=== PATIENT | female | born 1940 | race Caucasian/White ===

== ENCOUNTER 2020-05-27 18:39 | Inpatient (IN) | payer MEDICARE, OTHER ==
[~2020-05-27] VITALS: Ht 172.7 cm; Wt 71.1 kg
--- NOTE | ~2020-05-27 | EMS ---
[place] [address] EMS Patient Care Report Name: ISABEL GARCIA Room: [place] [address] ADM IN [facility]#: [id number] Admission: 05/27/20 Attend Phys: Rikki Pedroza MD Discharge: Date of : 42 Report #: [id number] THIS REPORT FOR: //name// Report Transmitted: 05/27/2020 20:11 EMS Care Summary [facility] Incident [id number] @ 05/27/2020 17:33 Incident Location [address] [place] [address] Patient ISABEL GARCIA Female, 79 Years 1940 Patient Address [address] [place] [address] Patient History Breast Cancer,Type 2 Diabetes, Patient Allergies No known allergies, Patient Medications Prednisone, Protonix, Insulin, Chief Complaint Hypoglycemia Disposition Transported Lights/Streeter Dispatch Reason Altered Mental Status Transported To [facility] Narrative Dispatch: [facility] was dispatched for a female patient experiencing hypoglycemia. Med 1 copied tones and went en route emergent. Chief Complaint: Med 1 arrived on scene to find the [place] [address] EMS Patient Care Report Name: ISABEL GARCIA Room: [facility] IN [facility]#: [id number] Admission: 05/27/20 Attend Phys: Rikki Pedroza MD Discharge: Date of : 42 Report #: [id number] her chair. Patient was experiencing slurred speech, and altered mental status. The patient's grandson stated her sugar level decreased and she is now altered. Patient's initial BG for EMS is 68. The patient's grandson was concerned about her mental status and stated she is "talking funny." History of present illness/KANE: Patient is a type 2 diabetic. Patient has an insulin pump that is actively working. Patient has an unknown last known well. Patient called 911 due to feeling "like her pump was not working." Patient's grandson states he saw her at 8 a.m. and she was "normal." Patient is normally A&OX4, GCS 15. Assessment: Airway: Clear, patent, and self maintained. Breathing: Clear and equal bilaterally. Non labored. Circulation: Skin is pink, warm, and dry. Strong radial pulses. Disability: A&OX2, patient is normally A&OX4. Exposures: No life threats were found. See "assessments" tab for further. Reason for ambulance: Patient is experiencing an altered mental status and is requesting EMS treatment and transport. Treatments: ALS assessment. 20G IV right AC. ETCO2 via nasal cannula at 2 liters showing non obstructed waveforms. Vitals monitored. See "flowchart" for further. Summary: After EMS arrival, the patient was given oral glucose to help raise her blood sugar. The patient also drank a glass of orange juice. The blood sugar began to increase, but the patient is still experiencing altered mental status, slurred speech, and left sided deficits. With EMS assistance the patient was able to be seated on the cot, secured in place, and placed into the ambulance for treatment and transport. Med 1 went en route emergent to [place]. A 12 lead EKG was performed showing sinus tachycardia, along with an IV placed in the right AC. The patient has a positive [place] and MEND exam with left sided deficits. Radio report was given with stroke activation and no further questions or orders were received. The patient's overall condition remained the same throughout transport. Med 1 arrived at destination and the patient was taken to CT. Report was given and signatures and paperwork were received. Med 1 returned back in service. Initial Vitals @17:57Glucose: 78, @18:36Glucose: 180, @18:10P: 111,BP: 145/79,SpO2: 94,PA Suspected: false @18:35P: 111,R: 17,BP: 137/88,EtCO2: 35,SpO2: 99,PA Suspected: false @18:40BP: 135/88,EtCO2: 32, [place] [address] EMS Patient Care Report Name: ISABEL GARCIA Room: [place] [address] ADM IN .#: [id number] Admission: 05/27/20 Attend Phys: Rikki Pedroza MD Discharge: Date of : 42 Report #: [id number] @18:20P: 110,Glucose: 121,EtCO2: 32,SpO2: 97,PA Suspected: false @17:50P: 92,R: 18,BP: 106/50,GCS: 13,Glucose: 68,SpO2: 98,Revised Trauma: 12, @18:14P: 115,PA Suspected: false @18:40P: 111,R: 18,GCS: 13,Glucose: 252,EtCO2: 32,SpO2: 97,PA Suspected: false @18:25P: 110,R: 20,BP: 145/78,EtCO2: 31,SpO2: 98,PA Suspected: false @18:30P: 111,R: 20,BP: 137/96,EtCO2: 35,SpO2: 99, Assessments @17:42MENTAL:Confused,Person Oriented,Place Oriented,SKIN:HEENT:Head/Face: Facial Droop,LUNG SOUNDS:ABDOMEN:PELVIS//GI:EXTREMITIES:Left Arm: Weakness,Left Leg: Weakness,Capillary Refill: Right Upper: < 2 Sec,PULSE:Radial: 2+ Normal,NEURO:Weakness Left-Sided,Slurred Speech,Facial Droop,@18:14MENTAL:Confused,Person Oriented,Place Oriented,SKIN:HEENT:Head/Face: Facial Droop,LUNG SOUNDS:ABDOMEN:PELVIS//GI:EXTREMITIES:Left Arm: Weakness,Left Leg: Weakness,Capillary Refill: Right Upper: < 2 Sec,PULSE:Radial: 2+ Normal,NEURO:Slurred Speech,Weakness Left-Sided,Facial Droop, Impression Diabetic Hypoglycemia Procedures @18:1412-Lead ECGResponse: UnchangedSucceeded@18:4012-Lead ECGResponse: UnchangedSucceeded@17:42ALS AssessmentResponse: UnchangedSucceeded@18:14Saline Lock 0cc (20 ga) Site: Hand-LeftResponse: UnchangedFailed@18:13Oxygen FlowRate: 2 Device: CO2 Nasal Cannula Response: UnchangedSucceeded@18:15Saline Lock 0cc (20 ga) Site: Antecubital-RightResponse: UnchangedSucceeded@17:44Oral Glucose - 37 Grams (gms) - OralResponse: Improved Timeline 17:33,Call Received 17:33,Dispatched 17:35,En Route 17:40,On Scene 17:41,At Patient 17:42,ALS Assessment,Response: UnchangedSucceeded, 17:44,Oral Glucose - 37 Grams (gms) - Oral,Response: Improved 17:50,BP: 106/50 M,PULSE: 92,RR: 18 R,SPO2: 98 Ox,ETCO2: ,B,PAIN: ,GCS: 13, 17:57,BP: / M,PULSE: ,RR: R,SPO2: Ox,ETCO2: ,B,PAIN: ,GCS: , 18:10,BP: 145/79 M,PULSE: 111,RR: R,SPO2: 94 Ox,ETCO2: ,BG: ,PAIN: ,GCS: , 18:13,Oxygen FlowRate: 2 Device: CO2 Nasal Cannula Response: UnchangedSucceeded, 18:14,Saline Lock 0cc 20 ga Site: Hand-Left,Response: UnchangedFailed, 18:14,12-Lead ECG,Response: UnchangedSucceeded, 18:14,BP: / M,PULSE: 115,RR: R,SPO2: Ox,ETCO2: ,BG: ,PAIN: ,GCS: , 18:14,[place] [address] EMS Patient Care Report Name: ISABEL GARCIA Room: [place] [address] ADM IN .R.#: [id number] Admission: 05/27/20 Attend Phys: Rikki Pedroza MD Discharge: Date of : 42 Report #: [id number] 18:15,Saline Lock 0cc 20 ga Site: Antecubital-Right,Response: UnchangedSucceeded, 18:20,BP: / M,PULSE: 110,RR: R,SPO2: 97 Ox,ETCO2: 32 ,B,PAIN: ,GCS: , 18:25,BP: 145/78 M,PULSE: 110,RR: 20 R,SPO2: 98 Ox,ETCO2: 31 ,BG: ,PAIN: ,GCS: , 18:30,BP: 137/96 M,PULSE: 111,RR: 20 R,SPO2: 99 Ox,ETCO2: 35 ,BG: ,PAIN: ,GCS: , 18:35,BP: 137/88 M,PULSE: 111,RR: 17 R,SPO2: 99 Ox,ETCO2: 35 ,BG: ,PAIN: ,GCS: , 18:36,BP: / M,PULSE: ,RR: R,SPO2: Ox,ETCO2: ,B,PAIN: ,GCS: , 18:40,BP: 135/88 M,PULSE: ,RR: R,SPO2: Ox,ETCO2: 32 ,BG: ,PAIN: ,GCS: , 18:40,12-Lead ECG,Response: UnchangedSucceeded, 18:40,BP: / M,PULSE: 111,RR: 18 R,SPO2: 97 Ox,ETCO2: 32 ,B,PAIN: ,GCS: 13, 18:46,At Destination 19:03,Call Closed Disclaimer v1.1 Copyright 2020 [employer] This EMS Care Summary contains data elements from the applicable legal record (which may be displayed differently). It is designed to provide pertinent information for the following purposes: continuity of care, clinical quality, and state data reporting. The complete legal record is available to ED staff and administrators of the receiving hospital in [employer]'s Patient Tracker. All data is provided "as is."
[2020-05-27 19:23] LABS: ABSOLUTE LYMPHOCYTES 0.6 thou/uL (0.8-5.3); ABSOLUTE MONOCYTES 0.3 thou/uL (0.0-1.2); ABSOLUTE NEUTROPHILS 2.6 thou/uL (1.6-8.1); BASOPHILS 0.1 %; HEMATOCRIT 33.7 % (37.0-47.0); HEMOGLOBIN 11.5 gm/dL (12.0-15.0); LYMPHOCYTES 17.2 %; MCHC 34.3 g/dL (28.0-37.0); MCV 93.3 fL (80.0-100.0); MONOCYTES 7.4 %; MPV 7.9 fl. (7.2-11.1); NUCLEATED RBCS 0 /100WBC; PLATELET COUNT* 142 thou/uL (150-400); POLYS 75.3 %; RBC 3.61 mil/uL (4.20-5.00); RDW-CV 14.6 % (10.5-14.5); WBC 3.5 thou/uL (4.0-11.0)
[2020-05-27 19:32] VITALS: BP 130/69
[2020-05-27 19:38] LABS: APTT 24.3 Seconds (25.0-31.3); PROTIME 10.3 Seconds (9.20-11.50)
[2020-05-27 19:44] LABS: CREATININE 1.3 mg/dL (0.6-1.3); POTASSIUM 4.5 mmol/L (3.5-5.1)
[2020-05-27 19:45] LABS: ALBUMIN 3.1 g/dL (3.4-5.0); TOTAL BILIRUBIN 0.4 mg/dL (<0.1-1.0)
[2020-05-27] MEDS ORDERED: [UNRECOGNIZED DRUG - OTHER] PO (20:47)
[2020-05-27] MEDS ORDERED: CHILDREN'S ASPI81 M1 PO (20:48)
[2020-05-27] MEDS ORDERED: MICARDIS40 MG PO (20:48)
[2020-05-27] MEDS ORDERED: PROTONIX40 M2 PO (20:48)
[2020-05-27] MEDS ORDERED: ATIVAN1 M1 PO (20:50)
[2020-05-27] MEDS ORDERED: NOVALOG (20:52)
[2020-05-27] MEDS ORDERED: DESYREL150 MG PO (20:53)
[2020-05-27 21:40] VITALS: BP 117/63
[2020-05-28 00:24] VITALS: BP 104/52
[2020-05-28 03:58] LABS: URINE BILIRUBIN NEGATIVE (Negative); URINE BLOOD TRACE (Negative); URINE CLARITY CLEAR; URINE COLOR YELLOW; URINE GLUCOSE-RANDOM NEGATIVE (Negative); URINE KETONES NEGATIVE (Negative); URINE LEUKOCYTES TRACE (Negative); URINE NITRITE POSITIVE (Negative); URINE PROTEIN TRACE (Negative); URINE UROBILINOGEN 0.2 E.U./dl (0.2-1.0)
[2020-05-28 05:10] LABS: CASTS None Seen /LPF (None Seen); SQUAMOUS 4-10 Moderate /LPF (0-3)
[2020-05-28 05:11] LABS: BACTERIA >30 Many /HPF (None Seen); CRYSTALS None Seen /LPF (None Seen); URINE RBC 0-2 Rare /HPF (0-2); URINE WBC 6-15 Few /HPF (0-5)
[2020-05-28 05:28] VITALS: BP 96/44
[2020-05-28 09:00] LABS: CREATININE 1.2 mg/dL (0.6-1.3); POTASSIUM 4.2 mmol/L (3.5-5.1)
[2020-05-28 09:04] LABS: MAGNESIUM 2.3 mg/dL (1.8-2.4); PHOSPHORUS* 2.6 mg/dL (2.5-4.9)
[2020-05-28 12:06] VITALS: BP 105/57
--- NOTE | 2020-05-28 12:34 | 2DMMODE ---
[place] [address] 2 D/M-MODE ECHOCARDIOGRAM Name: ISABEL GARCIA Room: [address] IN .R#: [id number] Admission: 05/27/20 Attend Phys: Rikki Pedroza, Discharge: Date of : 42 Date of Service: 05/28/20 1234 Report #: [id number] THIS REPORT FOR: cc: KATIE - Yolanda family physician/PCP KATIE - No family physician/PCP Benji Rizzo MD [facility] ~ APPROVED REPORT Study performed: 05/28/2020 10:00:56 EXAM: Comprehensive 2D, Doppler, and color-flow Echocardiogram Patient Location: In-Patient Room #: [facility] Status: routine BSA: 1.89 HR: 67 bpm BP: 96/44 mmHg Rhythm: NSR Other Information Study Quality: Good Indications CVA/TIA Echo Enhancing Agent Indication: Rule out Shunt Agent(s) / Amount(s) Used: Agitated Saline 10 cc 2D Dimensions IVSd: 11.06 (7-11mm) LVOT Diam: 20.45 (18-24mm) LVDd: 48.69 mm PWd: 12.83 (7-11mm) Ascending Ao: 32.88 (22-36mm) LVDs: 33.22 (25-40mm) Aortic Root: 32.44 mm Volumes Left Atrial Volume (Systole) LA ESV Index: 13.60 mL/m2 Aortic Valve AoV Peak Ceasar.: 1.26 m/s AO Peak Gr.: 6.34 mmHg LVOT Max P.22 mmHg AO Mean Gr.: 3.74 mmHg LVOT Mean P.02 [place] [address] 2 D/M-MODE ECHOCARDIOGRAM Name: ISABEL GARCIA Room: [address] IN .R.#: [id number] Admission: 05/27/20 Attend Phys: Rikki Pedroza, Discharge: Date of : 42 Date of Service: 05/28/20 1234 Report #: [id number] LVOT Max V: 1.03 m/s AO V2 VTI: 23.95 cm LVOT Mean V: 0.65 m/s SUMAYA (VTI): 3.06 cm2 LVOT V1 VTI: 22.32 cm Mitral Valve E/A Ratio: 0.90 MV Decel. Time: 250.70 ms MV E Max Ceasar.: 0.79 m/s MV PHT: 72.70 ms MVA (PHT): 3.03 cm2 TDI E/Lateral E': 7.90 E/Medial E': 11.29 Medial E' Caesar.: 0.07 m/s Lateral E' Ceasar.: 0.10 m/s Pulmonary Valve PV Peak Ceasar.: 0.93 m/s PV Peak Gr.: 3.43 mmHg Left Ventricle The left ventricle is normal size. There is normal LV segmental wall motion. There is normal left ventricular wall thickness. Left ventricular systolic function is normal. The left ventricular ejection fraction is within the normal range. LVEF is 55-60%. Grade I - abnormal relaxation pattern. Right Ventricle The right ventricle is normal size. The right ventricular systolic function is normal. Atria The left atrium size is normal. The interatrial septum is intact with no evidence for an atrial septal defect. The right atrium size is normal. Aortic Valve The aortic valve is normal in structure. No aortic regurgitation is present. There is no aortic valvular stenosis. Mitral Valve The mitral valve is normal in structure. There is no mitral valve regurgitation noted. No evidence of mitral valve stenosis. Tricuspid Valve The tricuspid valve is normal in structure. Trace tricuspid regurgitation. Unable [place] [address] 2 D/M-MODE ECHOCARDIOGRAM Name: ISABEL GARCIA Room: [address] IN ..#: [id number] Admission: 05/27/20 Attend Phys: Rikki Pedroza, Discharge: Date of : 42 Date of Service: 05/28/20 1234 Report #: [id number] Pulmonic Valve The pulmonary valve is normal in structure. There is no pulmonic valvular regurgitation. Great Vessels The aortic root is normal in size. IVC is normal in size and collapses >50% with inspiration. Pericardium There is no pericardial effusion. <Conclusion> The left ventricle is normal size. There is normal left ventricular wall thickness. Left ventricular systolic function is normal. The left ventricular ejection fraction is within the normal range. LVEF is 55-60%. The right ventricle is normal size. The left atrium size is normal. The aortic valve is normal in structure. The mitral valve is normal in structure. The tricuspid valve is normal in structure. IVC is normal in size and collapses >50% with inspiration. There is no pericardial effusion. There is normal LV segmental wall motion. The interatrial septum is intact with no evidence for an atrial septal defect. Grade I - abnormal relaxation pattern. <ELECTRONICALLY SIGNED> By: Benji Rizzo MD, FACC 05/28/20 1234 1234 1234 Benji Rizzo MD, FACC /INF
--- NOTE | 2020-05-28 13:15 | EKG ---
[place] [address] ELECTROCARDIOGRAM REPORT Name: ISABEL GARCIA Room: [address] ADM IN ..#: [id number] Admission: 05/27/20 Attend Phys: Rikki Pedroza, Discharge: Date of : 42 Date of Service: 05/27/201924 Report #: [id number] THIS REPORT FOR: //name// [facility] ED Test Date: 2020-05-27 Test Time: 19:25:32 Pat Name: ISABEL GARCIA Department: Room: [facility] Gender: F Jewelry Manager: MERE : 1940 Requested By: Bj Aguilera Order Number: [id number] MD: Benji Rizzo Measurements Intervals [place] Rate: 115 P: 43 [place]: 150 QRS: 52 QRSD: 112 T: 6 QT: 326 QTc: 451 Interpretive Statements Sinus tachycardia Low voltage, precordial leads Abnormal R-wave progression, early transition Baseline wander in lead(s) I,II,aVR,aVL,aVF,V1,V3,V4,V5 No previous ECG available for comparison Electronically Signed On 05-28-2020 13:14:55 HISTORICAL SOCIETY DIRECTOR by Benji Rizzo [email or web address] <ELECTRONICALLY SIGNED> By: Benji Rizzo MD, FACC 05/28/20 1314 24 24 Benji Rizzo MD, [facility] /EPI
[2020-05-28 16:39] VITALS: BP 113/58
[2020-05-28 20:30] VITALS: BP 108/59
[2020-05-29 00:30] VITALS: BP 85/49
[2020-05-29 02:06] LABS: GLYCOHEMOGLOBIN (HGB A1C) 8.1 % (4.8-5.6)
[2020-05-29 04:49] VITALS: BP 89/52
[2020-05-29 05:16] LABS: HEMATOCRIT 31.5 % (37.0-47.0); HEMOGLOBIN 10.7 gm/dL (12.0-15.0); MCH 31.4 pg (26.0-34.0); MCV 92.3 fL (80.0-100.0); MPV 7.6 fl. (7.2-11.1); RBC 3.41 mil/uL (4.20-5.00); RDW-CV 14.6 % (10.5-14.5); WBC 3.3 thou/uL (4.0-11.0)
[2020-05-29 05:25] LABS: CALCIUM 8.2 mg/dL (8.5-10.1); CREATININE 1.3 mg/dL (0.6-1.3); MAGNESIUM 2.3 mg/dL (1.8-2.4); POTASSIUM 4.1 mmol/L (3.5-5.1)
[2020-05-29 06:13] LABS: CHOLESTEROL 144 mg/dL (<200); HDL CHOLESTEROL 43 mg/dL (>40); LDL CHOLESTEROL 69 mg/dL (<100); SERUM ASSESSMENT Clear; TC:HDL 3.3 Ratio (Not establshd); TRIGLYCERIDE 161 mg/dL (<150); VLDL 32 mg/dL (<40)
[2020-05-29 08:00] VITALS: BP 105/54
[2020-05-29 12:00] VITALS: BP 82/41
[2020-05-29 15:55] VITALS: BP 116/53
[2020-05-29 20:00] VITALS: BP 109/57
[2020-05-30] VITALS: BP 108/48
[2020-05-30 03:58] VITALS: BP 139/58
[2020-05-30 04:44] LABS: HEMATOCRIT 31.5 % (37.0-47.0); HEMOGLOBIN 10.6 gm/dL (12.0-15.0); MCH 31.3 pg (26.0-34.0); MCHC 33.6 g/dL (28.0-37.0); MCV 93.1 fL (80.0-100.0); MPV 7.3 fl. (7.2-11.1); RBC 3.38 mil/uL (4.20-5.00); RDW-CV 14.4 % (10.5-14.5); WBC 2.8 thou/uL (4.0-11.0)
[2020-05-30 05:16] LABS: ALBUMIN 2.6 g/dL (3.4-5.0); CREATININE 1.2 mg/dL (0.6-1.3); MAGNESIUM 2.4 mg/dL (1.8-2.4); POTASSIUM 4.7 mmol/L (3.5-5.1); TOTAL BILIRUBIN 0.3 mg/dL (<0.1-1.0); TOTAL PROTEIN 6.7 g/dL (6.4-8.2)
[2020-05-30 07:55] VITALS: BP 133/72
[2020-05-30 21:53] VITALS: BP 133/57
[2020-05-30 23:46] VITALS: BP 117/51
[2020-05-31 04:00] VITALS: BP 132/52
[2020-05-31 08:25] VITALS: BP 96/47
[2020-05-31 11:45] VITALS: BP 117/59
[2020-05-31 12:16] VITALS: BP 96/43
[2020-05-31 16:27] VITALS: BP 112/56
[2020-05-31 20:00] VITALS: BP 106/48
[2020-06-01] VITALS: BP 111/47
[2020-06-01 04:38] VITALS: BP 91/39
[2020-06-01 06:13] LABS: HEMATOCRIT 28.7 % (37.0-47.0); HEMOGLOBIN 9.9 gm/dL (12.0-15.0); MCH 31.9 pg (26.0-34.0); MCHC 34.3 g/dL (28.0-37.0); MCV 93.1 fL (80.0-100.0); MPV 7.8 fl. (7.2-11.1); RBC 3.09 mil/uL (4.20-5.00); WBC 9.5 thou/uL (4.0-11.0)
[2020-06-01 06:34] LABS: ALBUMIN 2.3 g/dL (3.4-5.0); CALCIUM 8.3 mg/dL (8.5-10.1); MAGNESIUM 2.3 mg/dL (1.8-2.4); POTASSIUM 4.7 mmol/L (3.5-5.1); TOTAL BILIRUBIN 0.4 mg/dL (<0.1-1.0); TOTAL PROTEIN 6.1 g/dL (6.4-8.2)
[2020-06-01 09:55] VITALS: BP 103/50
--- NOTE | 2020-06-01 10:55 | CON ---
[address] [address] CONSULTATION Name: ISABEL GARCIA Room: [address] ADM IN M.R.#: [id number] Admission: 05/27/20 Attend Phys: Rikki Pedroza MD Discharge: Date of : 42 Report #: [id number] THIS REPORT FOR: //name// cc: KATIE - No family physician/PCP KATIE - No family physician/PCP ~ DATE OF SERVICE: 05/28/2020 HISTORY OF PRESENT ILLNESS: This is a 79-year-old female patient who was evaluated by me for an episode of expressive aphasia. History is somewhat confusing, but ER note indicates that the patient's blood sugar was low when it happened. She was given blood sugar and the symptoms resolved. 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 Her blood sugar goes up and down all the time, but she never had symptoms like this before. She does not know how low blood sugar was, but she is back to her baseline. She was found to be COVID positive during routine testing for the admission. REVIEW OF SYSTEMS: Positive for brittle diabetes. She says she has a monitor, will check her blood sugar very frequently and it does fluctuate. It does go quite low, but usually she does not get as much symptoms as she got but usually does get confused. She is COVID positive. Her renal function is borderline. Her GFR is only 40. It came up to 43. She is also having multiple other abnormality in the blood like white count is low. Her platelet count is low. She does not know how long these are going on and what her baseline is in that regard, but she says she feels back to her baseline. A 14-point review of system was carried out and it would appear that it is mostly noncontributory except as summarized above. PAST MEDICAL HISTORY: Negative for any stroke. FAMILY HISTORY: Negative for any early age stroke. SOCIAL HISTORY: She does not drink alcohol on a regular basis. PHYSICAL EXAMINATION: Indicate that she is alert. She is responsive to me. Her speech looks unremarkable. She is able to talk fairly well. She feels back to her baseline and we will try to reach the family to confirm that. Cranial nerve examination 2-12 looks unremarkable. Neuromuscular examination was symmetrical. There is no cerebellar sign. There is no meningeal sign. There is no carotid bruit in this patient. LABORATORY DATA: Indicate sodium of 135. She did have a CT scan on admission, which does not appear to [place] [address] CONSULTATION Name: ISABEL GARCIA Room: [address] IN [facility]#: [id number] Admission: 05/27/20 Attend Phys: Rikki Pedroza MD Discharge: Date of : 42 Report #: [id number] IMPRESSION: This patient appeared to have an episode of aphasia. Some of the records indicate the blood sugar was low, but I cannot confirm that. Moreover, the patient never had any symptoms like this before. It is desirable to look for transient ischemic attack in this patient. I went ahead and ordered a carotid Doppler in this patient. I was going to get a CT angiogram done, but I am somewhat concerned with her GFR. We will see if it comes up. She is COVID positive. I need to find out the protocol for MRI in this patient if it can be done. If workup is done and she returns supervisor to have a stroke, than the desirable thing is to do a combination of aspirin and Plavix, but her platelet count is low, that worries us somewhat, but it is not drastically low to prevent us from doing that if we can demonstrate the patient had a stroke by an MRI, but they have some protocol which they have to do on the COVID patient. I will also try to call the family and get all those things straightened up, but in the meantime, I think she needs a carotid Doppler. She needs an echocardiogram and she does need an MRI, but I do not know when it can be done because of her COVID status. Thank you very much for this referral. <ELECTRONICALLY SIGNED> By: Quincy Hernandez MD 06/01/20 1055 1408 1443Pross Hernandez MD /nt
[2020-06-01 11:29] VITALS: BP 105/56
[2020-06-01 17:48] VITALS: BP 108/61
[2020-06-01 20:00] VITALS: BP 134/63
[2020-06-02] VITALS (9 sets, daily range): BP systolic 96–148; BP diastolic 36–74
[2020-06-02 10:50] LABS: HEMATOCRIT 28.3 % (37.0-47.0); HEMOGLOBIN 9.7 gm/dL (12.0-15.0); MCH 31.9 pg (26.0-34.0); MCHC 34.2 g/dL (28.0-37.0); MCV 93.3 fL (80.0-100.0); MPV 7.7 fl. (7.2-11.1); NUCLEATED RBCS 0 /100WBC; PLATELET COUNT* 236 thou/uL (150-400); RBC 3.04 mil/uL (4.20-5.00); RDW-CV 14.5 % (10.5-14.5); WBC 10.5 thou/uL (4.0-11.0)
[2020-06-02 10:53] LABS: CALCIUM 8.2 mg/dL (8.5-10.1); CREATININE 1.1 mg/dL (0.6-1.3); POTASSIUM 4.6 mmol/L (3.5-5.1)
[2020-06-02 10:58] LABS: ALBUMIN 2.2 g/dL (3.4-5.0); TOTAL BILIRUBIN 0.4 mg/dL (<0.1-1.0); TOTAL PROTEIN 6.1 g/dL (6.4-8.2)
[2020-06-02 11:41] LABS: ABSOLUTE LYMPHOCYTES 0.3 thou/uL (0.8-5.3); ABSOLUTE MONOCYTES 0.2 thou/uL (0.0-1.2)
[2020-06-02 11:42] LABS: PLATELET ESTIMATE ADEQUATE
--- NOTE | 2020-06-02 12:22 | EKG ---
[place] [address] ELECTROCARDIOGRAM REPORT Name: ISABEL GARCIA Room: [address] ADM IN ..#: [id number] Admission: 05/27/20 Attend Phys: Rikki Pedroza, Discharge: Date of : 42 Date of Service: 05/31/20 0825 Report #: [id number] THIS REPORT FOR: //name// [facility] Test Date: 2020-05-31 Test Time: 08:25:05 Pat Name: ISABEL GARCIA Department: Room: [address] Gender: F School Bus Driver/Mechanic: ABDULLAHI : 1940 Requested By: Peterson Fonseca Order Number: [id number] Nereyda MD: Shane Vallecillo Measurements Intervals [place] Rate: 106 P: 51 AL: 177 QRS: 57 QRSD: 98 T: 14 QT: 348 QTc: 463 Interpretive Statements Sinus tachycardia Low voltage, precordial leads Baseline wander in lead(s) V3 Compared to ECG 05/27/2020 19:25:32 No significant changes Electronically Signed On 06-02-2020 12:22:15 CLIENT TECHNICAL SPECIALIST by Shane Vallecillo [email or web address] <ELECTRONICALLY SIGNED> By: Shane Vallecillo MD, FAC 06/02/20 1222 4 4 Shane Vallecillo MD, [facility] /EPI
[2020-06-03 04:00] VITALS: BP 125/55
[2020-06-03 05:20] LABS: ABSOLUTE LYMPHOCYTES 0.3 thou/uL (0.8-5.3); ABSOLUTE MONOCYTES 0.4 thou/uL (0.0-1.2); ABSOLUTE NEUTROPHILS 8.2 thou/uL (1.6-8.1); HEMATOCRIT 28.2 % (37.0-47.0); HEMOGLOBIN 9.6 gm/dL (12.0-15.0); MCH 31.6 pg (26.0-34.0); MCV 92.8 fL (80.0-100.0); MONOCYTES 4.4 %; MPV 7.9 fl. (7.2-11.1); NUCLEATED RBCS 0 /100WBC; PLATELET COUNT* 241 thou/uL (150-400); POLYS 92.6 %; RBC 3.04 mil/uL (4.20-5.00); RDW-CV 14.1 % (10.5-14.5); WBC 8.9 thou/uL (4.0-11.0)
[2020-06-03 05:40] LABS: ALBUMIN 2.4 g/dL (3.4-5.0); CALCIUM 8.1 mg/dL (8.5-10.1); CREATININE 1.1 mg/dL (0.6-1.3); MAGNESIUM 2.4 mg/dL (1.8-2.4); POTASSIUM 4.2 mmol/L (3.5-5.1); TOTAL BILIRUBIN 0.5 mg/dL (<0.1-1.0); TOTAL PROTEIN 6.5 g/dL (6.4-8.2)
[2020-06-03 07:45] VITALS: BP 105/51
[2020-06-03 12:00] VITALS: BP 117/54
[2020-06-03 16:00] VITALS: BP 132/59
[2020-06-03 20:00] VITALS: BP 133/56
[2020-06-04 00:08] VITALS: BP 116/50
[2020-06-04 04:00] VITALS: BP 96/49
[2020-06-04 05:37] LABS: ABSOLUTE LYMPHOCYTES 0.4 thou/uL (0.8-5.3); ABSOLUTE MONOCYTES 0.4 thou/uL (0.0-1.2); ABSOLUTE NEUTROPHILS 8.5 thou/uL (1.6-8.1); BASOPHILS 0.2 %; HEMATOCRIT 28.1 % (37.0-47.0); HEMOGLOBIN 9.4 gm/dL (12.0-15.0); LYMPHOCYTES 4.2 %; MCHC 33.6 g/dL (28.0-37.0); MCV 92.3 fL (80.0-100.0); MONOCYTES 4.4 %; MPV 7.5 fl. (7.2-11.1); NUCLEATED RBCS 0 /100WBC; PLATELET COUNT* 265 thou/uL (150-400); POLYS 91.2 %; RBC 3.04 mil/uL (4.20-5.00); RDW-CV 14.2 % (10.5-14.5); WBC 9.3 thou/uL (4.0-11.0)
[2020-06-04 05:52] LABS: PREALBUMIN 17.4 mg/dL (18.0-35.7)
[2020-06-04 06:04] LABS: ALBUMIN 2.2 g/dL (3.4-5.0); CALCIUM 7.8 mg/dL (8.5-10.1); POTASSIUM 4.1 mmol/L (3.5-5.1); TOTAL BILIRUBIN 0.5 mg/dL (<0.1-1.0); TOTAL PROTEIN 6.2 g/dL (6.4-8.2)
[2020-06-04 07:50] VITALS: BP 121/63
[2020-06-04 12:46] VITALS: BP 125/74
[2020-06-04 15:39] LABS: CALCIUM 8.5 mg/dL (8.5-10.1); CREATININE 1.1 mg/dL (0.6-1.3); MAGNESIUM 2.6 mg/dL (1.8-2.4); POTASSIUM 3.9 mmol/L (3.5-5.1)
[2020-06-04 17:07] LABS: BE 1.9 mmol/L (-2 to +3); PCO2 34.1 mmHg (35.0-45.0); pH 7.487 (7.340-7.450)
[2020-06-04 17:13] LABS: PO2 158.9 mmHg (75.0-100.0)
[2020-06-04 17:59] VITALS: BP 107/67
[2020-06-04 20:00] VITALS: BP 110/54
[2020-06-05 00:02] VITALS: BP 120/59
[2020-06-05 03:53] VITALS: BP 104/44
[2020-06-05 05:32] LABS: ABSOLUTE LYMPHOCYTES 0.2 thou/uL (0.8-5.3); ABSOLUTE MONOCYTES 0.4 thou/uL (0.0-1.2); BASOPHILS 0.1 %; HEMATOCRIT 29.2 % (37.0-47.0); HEMOGLOBIN 9.9 gm/dL (12.0-15.0); LYMPHOCYTES 2.8 %; MCH 31.6 pg (26.0-34.0); MCHC 33.8 g/dL (28.0-37.0); MCV 93.3 fL (80.0-100.0); MONOCYTES 4.8 %; MPV 7.8 fl. (7.2-11.1); NUCLEATED RBCS 0 /100WBC; PLATELET COUNT* 267 thou/uL (150-400); POLYS 92.3 %; RBC 3.13 mil/uL (4.20-5.00); RDW-CV 13.8 % (10.5-14.5); WBC 7.6 thou/uL (4.0-11.0)
[2020-06-05 05:41] LABS: ALBUMIN 2.2 g/dL (3.4-5.0); CALCIUM 7.7 mg/dL (8.5-10.1); MAGNESIUM 2.4 mg/dL (1.8-2.4); POTASSIUM 4.2 mmol/L (3.5-5.1); TOTAL BILIRUBIN 0.5 mg/dL (<0.1-1.0)
[2020-06-05 08:00] VITALS: BP 114/51
[2020-06-05 11:58] VITALS: BP 139/59
[2020-06-05 16:28] VITALS: BP 141/63
[2020-06-05 21:00] VITALS: BP 145/71
[2020-06-06 00:28] VITALS: BP 130/62
[2020-06-06 07:55] LABS: HEMATOCRIT 28.5 % (37.0-47.0); HEMOGLOBIN 9.6 gm/dL (12.0-15.0); MCH 31.6 pg (26.0-34.0); MCHC 33.6 g/dL (28.0-37.0); MCV 93.9 fL (80.0-100.0); MPV 8.3 fl. (7.2-11.1); NUCLEATED RBCS 0 /100WBC; PLATELET COUNT* 271 thou/uL (150-400); RBC 3.04 mil/uL (4.20-5.00); RDW-CV 13.9 % (10.5-14.5); WBC 8.6 thou/uL (4.0-11.0)
[2020-06-06 08:00] VITALS: BP 118/62
[2020-06-06 08:03] LABS: ALBUMIN 2.2 g/dL (3.4-5.0); CALCIUM 8.2 mg/dL (8.5-10.1); POTASSIUM 4.5 mmol/L (3.5-5.1); TOTAL BILIRUBIN 0.5 mg/dL (<0.1-1.0); TOTAL PROTEIN 5.7 g/dL (6.4-8.2)
[2020-06-06 10:28] LABS: ABSOLUTE LYMPHOCYTES 0.8 thou/uL (0.8-5.3); ABSOLUTE NEUTROPHILS 7.8 thou/uL (1.6-8.1); METAMYELOCYTES 3 %; PLATELET ESTIMATE ADEQUATE
[2020-06-06 11:45] VITALS: BP 118/60
--- NOTE | 2020-06-06 14:43 | CON ---
[address] [address] CONSULTATION Name: ISABEL GARCIA Room: [address] IN M.R.#: [id number] Admission: 05/27/20 Attend Phys: Rikki Pedroza MD Discharge: Date of : 42 Report #: [id number] THIS REPORT FOR: //name// cc: KATIE Guerrero family physician/PCP KATIE - Yolanda family physician/PCP ~ DATE OF SERVICE: 06/02/2020 Consult has been requested by Dr. Rikki Pedroza. INDICATION FOR CONSULTATION: Acute hypoxemic respiratory failure secondary to COVID-19. HISTORY OF PRESENT ILLNESS: A 79-year-old female with past medical history is as mentioned below. This does include a history of diabetes as well as gastroesophageal reflux disease. The patient does not have any known history of smoking. The patient is now admitted with COVID-19. In addition to having shortness of breath as well as a cough, the patient since had an episode of difficulty speaking and finding words. The patient therefore has been evaluated by Neurology service as well and currently is on Plavix. The patient initially was requiring 2 liters of oxygen and this has gradually increased to 8 liters. The patient is becoming more hypoxemic. REVIEW OF SYSTEMS: The patient's review of systems for 12 points is negative except as mentioned above. The patient initially did complain of left arm weakness and tingling as well. PAST MEDICAL HISTORY: Diabetes, hypertension, gastroesophageal reflux disease, anxiety, insomnia. SOCIAL HISTORY: Lifetime nonsmoker. No known history of heavy alcohol use or illegal drug use. CURRENT MEDICATIONS: List in [employer] reviewed. HOME MEDICATIONS: List in [employer] reviewed. FAMILY HISTORY: There is no pertinent family history. PHYSICAL EXAMINATION: GENERAL: She is alert, awake and oriented. VITAL SIGNS: In the records reviewed. She is on 8 liters nasal cannula. NECK: Does not show raised JVP. CHEST: Breath sounds bilaterally equal, decreased. [place] [address] CONSULTATION Name: ISABEL GARCIA Room: [address] IN [facility]#: [id number] Admission: 05/27/20 Attend Phys: Rikki Pedroza MD Discharge: Date of : 42 Report #: [id number] HEART: Regular. There is no murmur. ABDOMEN: Soft and nontender. EXTREMITIES: Lower extremities, trace edema, no calf tenderness. SKIN: Dry and intact. LABORATORY DATA: The patient's lab work and chest x-rays are in [facility]. These are reviewed. Echocardiogram, which shows a normal left ventricular ejection fraction without significant elevation and right heart pressures reviewed. ASSESSMENT AND PLAN: 1. Acute hypoxemic respiratory failure secondary to COVID-19. We will continue to titrate oxygen. We will have a low threshold of starting BiPAP. If the patient's condition worsens, we will go ahead and start Brovana. 2. COVID-19. I started remdesivir and I also ordered 2 units of convalescent plasma. We will try to run the patient on the sulfate drier machine operator side and therefore, I did order one dose of Lasix. We will reevaluate tomorrow and then consider more Lasix with or without albumin. I also went ahead and increased her steroids from prednisone 60 b.i.d. to dexamethasone 8 q.8. Recommend watching blood glucoses and treating with insulin as necessary. 3. Pulmonary infiltrates. She just has been started on doxycycline, we can change to p.o. to limit fluid intake. We will add ceftriaxone. We will do nasal swab for methicillin-resistant Staphylococcus aureus as well as a sputum culture. 4. Deep vein thrombosis prophylaxis. She is on prophylactic dose Lovenox. 5. Recent possible stroke or transient ischemic attack. She is on Plavix as well. 6. Edema of lower extremities. We will also do venous Dopplers. She is higher than average risk of IV dye injury. Therefore, for now, I decided to hold off on CTA chest. 7. Clostridium difficile prophylaxis, Florastor. Thanks for this consultation. <ELECTRONICALLY SIGNED> By: Roosevelt Schulte MD 06/06/20 1443 1822 1916Aariel Schulte MD /nt
[2020-06-06 15:58] VITALS: BP 132/64
[2020-06-06 20:00] VITALS: BP 136/61
[2020-06-07] VITALS: BP 112/35
[2020-06-07 04:00] VITALS: BP 115/49
[2020-06-07 04:09] LABS: ABSOLUTE LYMPHOCYTES 0.3 thou/uL (0.8-5.3); ABSOLUTE MONOCYTES 0.5 thou/uL (0.0-1.2); ABSOLUTE NEUTROPHILS 8.6 thou/uL (1.6-8.1); BASOPHILS 0.1 %; HEMATOCRIT 26.2 % (37.0-47.0); HEMOGLOBIN 8.9 gm/dL (12.0-15.0); LYMPHOCYTES 3.4 %; MCH 31.8 pg (26.0-34.0); MCHC 34.1 g/dL (28.0-37.0); MCV 93.3 fL (80.0-100.0); MONOCYTES 5.1 %; MPV 8.3 fl. (7.2-11.1); NUCLEATED RBCS 0 /100WBC; PLATELET COUNT* 239 thou/uL (150-400); POLYS 91.4 %; RBC 2.81 mil/uL (4.20-5.00); RDW-CV 13.7 % (10.5-14.5); WBC 9.4 thou/uL (4.0-11.0)
[2020-06-07 04:59] LABS: ALBUMIN 2.6 g/dL (3.4-5.0); CALCIUM 8.3 mg/dL (8.5-10.1); MAGNESIUM 2.4 mg/dL (1.8-2.4); POTASSIUM 4.2 mmol/L (3.5-5.1); TOTAL BILIRUBIN 0.5 mg/dL (<0.1-1.0); TOTAL PROTEIN 5.6 g/dL (6.4-8.2)
[2020-06-07 08:00] VITALS: BP 123/57
[2020-06-07 11:25] VITALS: BP 113/64
[2020-06-07 16:37] VITALS: BP 96/53
[2020-06-07 20:00] VITALS: BP 134/46
[2020-06-08 00:16] VITALS: BP 127/62
[2020-06-08 05:24] VITALS: BP 110/41
[2020-06-08 06:04] LABS: ABSOLUTE LYMPHOCYTES 0.3 thou/uL (0.8-5.3); ABSOLUTE MONOCYTES 0.4 thou/uL (0.0-1.2); ABSOLUTE NEUTROPHILS 9.6 thou/uL (1.6-8.1); BASOPHILS 0.1 %; HEMATOCRIT 26.8 % (37.0-47.0); HEMOGLOBIN 9.2 gm/dL (12.0-15.0); LYMPHOCYTES 3.2 %; MCH 31.6 pg (26.0-34.0); MCHC 34.2 g/dL (28.0-37.0); MCV 92.4 fL (80.0-100.0); MONOCYTES 3.8 %; MPV 8.5 fl. (7.2-11.1); NUCLEATED RBCS 0 /100WBC; PLATELET COUNT* 243 thou/uL (150-400); POLYS 92.9 %; RBC 2.91 mil/uL (4.20-5.00); WBC 10.3 thou/uL (4.0-11.0)
[2020-06-08 06:26] LABS: ALBUMIN 2.4 g/dL (3.4-5.0); CREATININE 0.9 mg/dL (0.6-1.3); POTASSIUM 4.3 mmol/L (3.5-5.1); TOTAL BILIRUBIN 0.5 mg/dL (<0.1-1.0); TOTAL PROTEIN 5.7 g/dL (6.4-8.2)
[2020-06-08 08:00] VITALS: BP 106/70
[2020-06-08 12:00] VITALS: BP 118/84
[2020-06-08 16:00] VITALS: BP 122/68
[2020-06-08 20:00] VITALS: BP 129/56
[2020-06-09] VITALS (7 sets, daily range): BP systolic 102–139; BP diastolic 50–80
[2020-06-09 06:20] LABS: HEMATOCRIT 25.8 % (37.0-47.0); HEMOGLOBIN 8.8 gm/dL (12.0-15.0); MCH 31.7 pg (26.0-34.0); MCHC 33.9 g/dL (28.0-37.0); MCV 93.5 fL (80.0-100.0); MPV 8.2 fl. (7.2-11.1); NUCLEATED RBCS 0 /100WBC; PLATELET COUNT* 219 thou/uL (150-400); RBC 2.76 mil/uL (4.20-5.00); WBC 9.6 thou/uL (4.0-11.0)
[2020-06-09 06:42] LABS: ALBUMIN 2.2 g/dL (3.4-5.0); CALCIUM 7.9 mg/dL (8.5-10.1); CREATININE 0.9 mg/dL (0.6-1.3); POTASSIUM 4.8 mmol/L (3.5-5.1); TOTAL BILIRUBIN 0.4 mg/dL (<0.1-1.0); TOTAL PROTEIN 5.3 g/dL (6.4-8.2)
[2020-06-09 06:53] LABS: PREALBUMIN 22.6 mg/dL (18.0-35.7)
[2020-06-09 07:26] LABS: ABSOLUTE LYMPHOCYTES 0.8 thou/uL (0.8-5.3); ABSOLUTE MONOCYTES 0.1 thou/uL (0.0-1.2); ABSOLUTE NEUTROPHILS 8.7 thou/uL (1.6-8.1); PLATELET ESTIMATE ADEQUATE
[2020-06-10] VITALS: BP 122/55
[2020-06-10 04:00] VITALS: BP 123/62
[2020-06-10 06:56] LABS: ABSOLUTE LYMPHOCYTES 0.3 thou/uL (0.8-5.3); ABSOLUTE MONOCYTES 0.4 thou/uL (0.0-1.2); ABSOLUTE NEUTROPHILS 9.9 thou/uL (1.6-8.1); BASOPHILS 0.4 %; HEMATOCRIT 26.3 % (37.0-47.0); HEMOGLOBIN 8.8 gm/dL (12.0-15.0); LYMPHOCYTES 2.9 %; MCH 31.6 pg (26.0-34.0); MCHC 33.6 g/dL (28.0-37.0); MCV 93.9 fL (80.0-100.0); MONOCYTES 3.7 %; MPV 8.6 fl. (7.2-11.1); NUCLEATED RBCS 0 /100WBC; PLATELET COUNT* 206 thou/uL (150-400); RDW-CV 14.5 % (10.5-14.5); WBC 10.6 thou/uL (4.0-11.0)
[2020-06-10 07:16] LABS: ALBUMIN 2.3 g/dL (3.4-5.0); CREATININE 0.9 mg/dL (0.6-1.3); MAGNESIUM 2.2 mg/dL (1.8-2.4); POTASSIUM 4.5 mmol/L (3.5-5.1); TOTAL BILIRUBIN 0.4 mg/dL (<0.1-1.0); TOTAL PROTEIN 5.4 g/dL (6.4-8.2)
[2020-06-10 09:52] VITALS: BP 100/54
[2020-06-10 12:00] VITALS: BP 118/60
[2020-06-10 16:00] VITALS: BP 110/58
[2020-06-10 20:00] VITALS: BP 139/59
[2020-06-11] VITALS: BP 116/47
[2020-06-11 04:00] VITALS: BP 114/52
[2020-06-11 06:38] LABS: ABSOLUTE LYMPHOCYTES 0.3 thou/uL (0.8-5.3); ABSOLUTE MONOCYTES 0.4 thou/uL (0.0-1.2); ABSOLUTE NEUTROPHILS 9.1 thou/uL (1.6-8.1); BASOPHILS 0.3 %; HEMATOCRIT 25.7 % (37.0-47.0); HEMOGLOBIN 8.7 gm/dL (12.0-15.0); LYMPHOCYTES 3.2 %; MCH 31.8 pg (26.0-34.0); MCHC 34.1 g/dL (28.0-37.0); MCV 93.3 fL (80.0-100.0); MONOCYTES 4.1 %; MPV 8.6 fl. (7.2-11.1); NUCLEATED RBCS 0 /100WBC; PLATELET COUNT* 200 thou/uL (150-400); POLYS 92.4 %; RBC 2.75 mil/uL (4.20-5.00); RDW-CV 14.6 % (10.5-14.5); WBC 9.8 thou/uL (4.0-11.0)
[2020-06-11 07:08] LABS: ALBUMIN 2.7 g/dL (3.4-5.0); CALCIUM 7.8 mg/dL (8.5-10.1); CREATININE 0.9 mg/dL (0.6-1.3); MAGNESIUM 2.3 mg/dL (1.8-2.4); POTASSIUM 4.2 mmol/L (3.5-5.1); TOTAL BILIRUBIN 0.6 mg/dL (<0.1-1.0); TOTAL PROTEIN 5.7 g/dL (6.4-8.2)
[2020-06-11 08:00] VITALS: BP 123/65
[2020-06-11 11:30] VITALS: BP 117/60
[2020-06-11 16:30] VITALS: BP 135/67
[2020-06-11 20:29] VITALS: BP 129/60
[2020-06-12 00:14] VITALS: BP 126/54
[2020-06-12 04:00] VITALS: BP 118/83
[2020-06-12 07:40] VITALS: BP 122/51
[2020-06-12 14:48] LABS: CALCIUM 8.3 mg/dL (8.5-10.1); CREATININE 0.9 mg/dL (0.6-1.3); MAGNESIUM 2.3 mg/dL (1.8-2.4); POTASSIUM 4.4 mmol/L (3.5-5.1)
[2020-06-12 15:21] VITALS: BP 123/63
[2020-06-12 20:10] VITALS: BP 101/47
[2020-06-13] VITALS (7 sets, daily range): BP systolic 110–134; BP diastolic 42–71
[2020-06-13 05:29] LABS: HEMATOCRIT 24.9 % (37.0-47.0); HEMOGLOBIN 8.4 gm/dL (12.0-15.0); MCH 31.8 pg (26.0-34.0); MCHC 33.8 g/dL (28.0-37.0); MCV 94.2 fL (80.0-100.0); MPV 8.9 fl. (7.2-11.1); NUCLEATED RBCS 0 /100WBC; PLATELET COUNT* 160 thou/uL (150-400); RBC 2.65 mil/uL (4.20-5.00); RDW-CV 14.4 % (10.5-14.5); WBC 8.3 thou/uL (4.0-11.0)
[2020-06-13 07:19] LABS: ALBUMIN 2.8 g/dL (3.4-5.0); CREATININE 0.8 mg/dL (0.6-1.3); MAGNESIUM 2.4 mg/dL (1.8-2.4); POTASSIUM 4.7 mmol/L (3.5-5.1); TOTAL BILIRUBIN 0.5 mg/dL (<0.1-1.0); TOTAL PROTEIN 5.4 g/dL (6.4-8.2)
[2020-06-13 07:23] LABS: ABSOLUTE LYMPHOCYTES 0.3 thou/uL (0.8-5.3); PLATELET ESTIMATE ADEQUATE
[2020-06-14 04:07] VITALS: BP 104/48
[2020-06-14 05:15] LABS: ABSOLUTE LYMPHOCYTES 0.5 thou/uL (0.8-5.3); ABSOLUTE MONOCYTES 0.4 thou/uL (0.0-1.2); ABSOLUTE NEUTROPHILS 5.7 thou/uL (1.6-8.1); BASOPHILS 0.2 %; EOSINOPHILS 0.5 %; HEMATOCRIT 24.7 % (37.0-47.0); HEMOGLOBIN 8.2 gm/dL (12.0-15.0); LYMPHOCYTES 6.9 %; MCH 31.5 pg (26.0-34.0); MCHC 33.4 g/dL (28.0-37.0); MCV 94.3 fL (80.0-100.0); MONOCYTES 6.7 %; MPV 8.8 fl. (7.2-11.1); NUCLEATED RBCS 0 /100WBC; PLATELET COUNT* 139 thou/uL (150-400); POLYS 85.7 %; RBC 2.62 mil/uL (4.20-5.00); RDW-CV 14.4 % (10.5-14.5); WBC 6.6 thou/uL (4.0-11.0)
[2020-06-14 05:29] LABS: CALCIUM 8.3 mg/dL (8.5-10.1); CREATININE 0.8 mg/dL (0.6-1.3); MAGNESIUM 2.5 mg/dL (1.8-2.4); POTASSIUM 4.1 mmol/L (3.5-5.1)
[2020-06-14 08:00] VITALS: BP 80/50
[2020-06-14 12:00] VITALS: BP 115/58
[2020-06-14 16:00] VITALS: BP 99/52
[2020-06-14 20:50] VITALS: BP 123/69
[2020-06-15] VITALS: BP 111/57
[2020-06-15 04:00] VITALS: BP 101/47
[2020-06-15 08:30] VITALS: BP 82/50
[2020-06-15 13:35] VITALS: BP 116/80
[2020-06-15 17:52] VITALS: BP 91/55
[2020-06-15 20:00] VITALS: BP 119/63
[2020-06-16 00:20] VITALS: BP 114/53
[2020-06-16 04:00] VITALS: BP 116/60
[2020-06-16] MEDS ORDERED: DEXAMETHASONE 44 M1 PO (07:10)
[2020-06-16] MEDS ORDERED: CLOPIDOGREL75 MG PO (07:10)
[2020-06-16] MEDS ORDERED: MIDODRINE HCL 55 M1 PO (07:10)
[2020-06-16] MEDS ORDERED: LANTUS SUBQ (07:10)
[2020-06-16] MEDS ORDERED: BROVANA15 MCG/2 M INH (07:10)
[2020-06-16] MEDS ORDERED: HUMALOG100 UNIT/1 SUBQ ×2 (07:10)
[2020-06-16] MEDS ORDERED: DESYREL150 MG PO (07:10)
[2020-06-16] MEDS ORDERED: ATIVAN1 M1 PO (07:10)
[2020-06-16 08:00] VITALS: BP 100/35
== END 2020-06-16 15:00 | DRG 871 ==
LOC: M.ERS 18:39 → M.TBA-ER 21:00 → M.ORTHSURG 21:00 → M.2W 06-16 03:02
PROVIDERS: Emergency Medicine; Family Medicine; Internal Medicine; Internal Medicine Critical Care Medicine; Personal Emergency Response Attendant; ADMIT Internal Medicine; ATTEND Internal Medicine
PROC: 5A0935A Assistance with Respiratory Ventilation, Less than 24 Consecutive Hours, High Flow/Velocity Cannula (ICD-10-PCS; principal; 2020-05-31)
PROC: XW13325 Transfusion of Convalescent Plasma (Nonautologous) into Peripheral Vein, Percutaneous Approach, New Technology Group 5 (ICD-10-PCS; 2020-06-02)
PROC: 5A0935A Assistance with Respiratory Ventilation, Less than 24 Consecutive Hours, High Flow/Velocity Cannula (ICD-10-PCS; 2020-06-02)
PROC: XW033E5 Introduction of Remdesivir Anti-infective into Peripheral Vein, Percutaneous Approach, New Technology Group 5 (ICD-10-PCS; 2020-06-02)
PROC: 5A0935A Assistance with Respiratory Ventilation, Less than 24 Consecutive Hours, High Flow/Velocity Cannula (ICD-10-PCS; 2020-06-03)
PROC: 5A09357 Assistance with Respiratory Ventilation, Less than 24 Consecutive Hours, Continuous Positive Airway Pressure (ICD-10-PCS; 2020-06-04)
PROC: 5A0935A Assistance with Respiratory Ventilation, Less than 24 Consecutive Hours, High Flow/Velocity Cannula (ICD-10-PCS; 2020-06-04)
PROC: 5A09357 Assistance with Respiratory Ventilation, Less than 24 Consecutive Hours, Continuous Positive Airway Pressure (ICD-10-PCS; 2020-06-05)
PROC: 5A0935A Assistance with Respiratory Ventilation, Less than 24 Consecutive Hours, High Flow/Velocity Cannula (ICD-10-PCS; 2020-06-05)
PROC: B548ZZA Ultrasonography of Superior Vena Cava, Guidance (ICD-10-PCS; 2020-06-05)
PROC: 02HV33Z Insertion of Infusion Device into Superior Vena Cava, Percutaneous Approach (ICD-10-PCS; 2020-06-05)
PROC: 5A0935A Assistance with Respiratory Ventilation, Less than 24 Consecutive Hours, High Flow/Velocity Cannula (ICD-10-PCS; 2020-06-06)
PROC: 5A09357 Assistance with Respiratory Ventilation, Less than 24 Consecutive Hours, Continuous Positive Airway Pressure (ICD-10-PCS; 2020-06-06)
PROC: 5A09357 Assistance with Respiratory Ventilation, Less than 24 Consecutive Hours, Continuous Positive Airway Pressure (ICD-10-PCS; 2020-06-07)
PROC: 5A0935A Assistance with Respiratory Ventilation, Less than 24 Consecutive Hours, High Flow/Velocity Cannula (ICD-10-PCS; 2020-06-07)
PROC: 5A09357 Assistance with Respiratory Ventilation, Less than 24 Consecutive Hours, Continuous Positive Airway Pressure (ICD-10-PCS; 2020-06-08)
PROC: 5A0935A Assistance with Respiratory Ventilation, Less than 24 Consecutive Hours, High Flow/Velocity Cannula (ICD-10-PCS; 2020-06-08)
PROC: 5A09357 Assistance with Respiratory Ventilation, Less than 24 Consecutive Hours, Continuous Positive Airway Pressure (ICD-10-PCS; 2020-06-09)
PROC: 5A0935A Assistance with Respiratory Ventilation, Less than 24 Consecutive Hours, High Flow/Velocity Cannula (ICD-10-PCS; 2020-06-09)
PROC: 5A0935A Assistance with Respiratory Ventilation, Less than 24 Consecutive Hours, High Flow/Velocity Cannula (ICD-10-PCS; 2020-06-10)
PROC: 5A0935A Assistance with Respiratory Ventilation, Less than 24 Consecutive Hours, High Flow/Velocity Cannula (ICD-10-PCS; 2020-06-11)
PROC: 5A0935A Assistance with Respiratory Ventilation, Less than 24 Consecutive Hours, High Flow/Velocity Cannula (ICD-10-PCS; 2020-06-14)
PROC: 5A0935A Assistance with Respiratory Ventilation, Less than 24 Consecutive Hours, High Flow/Velocity Cannula (ICD-10-PCS; 2020-06-15)
PROC: 5A0935A Assistance with Respiratory Ventilation, Less than 24 Consecutive Hours, High Flow/Velocity Cannula (ICD-10-PCS; 2020-06-16)
DX: A41.89 Other specified sepsis (principal); U07.1 COVID-19; J96.01 Acute respiratory failure with hypoxia; J12.89 Other viral pneumonia; G45.9 Transient cerebral ischemic attack, unspecified; D61.818 Other pancytopenia; E44.1 Mild protein-calorie malnutrition; R47.01 Aphasia; G81.90 Hemiplegia, unspecified affecting unspecified side; T82.524A Displacement of infusion catheter, initial encounter; K21.9 Gastro-esophageal reflux disease without esophagitis; F41.1 Generalized anxiety disorder; I10 Essential (primary) hypertension; G47.00 Insomnia, unspecified; E11.9 Type 2 diabetes mellitus without complications; R60.0 Localized edema; Y83.8 Other surgical procedures as the cause of abnormal reaction of the patient, or of later complication, without mention of misadventure at the time of the procedure; Z68.23 Body mass index [BMI] 23.0-23.9, adult; Z79.82 Long term (current) use of aspirin; Z79.899 Other long term (current) drug therapy; Y92.89 Other specified places as the place of occurrence of the external cause